=== PATIENT | male | born 1955 | race Caucasian/White ===

== ENCOUNTER → 2024-07-03 | Outpatient (CLI) | payer OTHER ==
[2024-07-03 15:56] LABS: BLOOD UREA NITROGEN 19 MG/DL (9-23); GLOMERULAR FILTRATION RATE > 60.0 (>42)
== END ==
LOC: M PLALAB 13:29
PROVIDERS: ATTEND Internal Medicine Hematology & Oncology
DX: D69.6 Thrombocytopenia, unspecified (principal)

== ENCOUNTER → 2024-07-07 | Outpatient (CLI) | payer OTHER ==
[~2024-07-07] MED LIST: GASTROGRAFIN SOLUTION 30ML ONE; ISOVUE-370 76% 100ML VIAL ONE
== END ==
LOC: M PLAIMG 09:50
PROVIDERS: ATTEND Internal Medicine Hematology & Oncology
DX: R16.1 Splenomegaly, not elsewhere classified (principal)
CPT/HCPCS: 71260; 74177; Q9963; Q9967

== ENCOUNTER → 2024-07-31 | Outpatient (CLI) | payer OTHER ==
[~2024-07-31] MED LIST changes: +ACETAMINOPHEN 325 MG TAB PO PRN; -GASTROGRAFIN SOLUTION 30ML ONE; -ISOVUE-370 76% 100ML VIAL ONE; +NORCO, ANEXSIA 5/325MG TABLET (HYDROcodone/ACETAMINOPHEN) PO PRN; +NS (Normal Saline) 0.9% 1,000 ML IV SCH
[2024-07-31 11:30] VITALS: TEMP 99.5
[2024-07-31 12:00] LABS: HEMATOCRIT 42.7 % (42.0-52.0); HEMOGLOBIN 13.7 g/dl (13.5-17.5); MEAN CORPUSCULAR HEMOGLOBIN 26.8 pg (27.0-33.0); MEAN CORPUSCULAR HGB CONC 32.1 g/dl (32.0-36.5); MEAN CORPUSCULAR VOLUME 83.4 fl (80.0-96.0); PLATELET COUNT, AUTOMATED 138 10^3/uL (150-450); RED BLOOD COUNT 5.12 10^6/uL (4.30-6.10); WHITE BLOOD COUNT 9.6 10^3/uL (4.0-10.0)
[2024-07-31 12:18] LABS: INR 1.06; PROTHROMBIN TIME 14.2 SECONDS (12.5-14.5)
[2024-07-31] MEDS: LIDOCAINE 1% MDV 20ML VIAL SC ONE (13:43)
[2024-07-31] MEDS: MIDAZOLAM INJ 2MG/2ML VIAL IV PRN (13:43)
[2024-07-31] MEDS: fentaNYL 100 MCG/2 ML INJECTION IV PRN (13:43)
[2024-07-31 16:15] VITALS: BP 155/70; O2SAT 94
== END ==
LOC: M IRPRO 11:13
PROVIDERS: ATTEND Internal Medicine Hematology & Oncology
DX: R91.8 Other nonspecific abnormal finding of lung field (principal); D69.6 Thrombocytopenia, unspecified; J95.811 Postprocedural pneumothorax
CPT/HCPCS: 32408; 84520; 85027; 85610; 88305; 99152; 99153; J2250; J3010

== ENCOUNTER → 2024-10-05 | Outpatient (CLI) | payer OTHER ==
[~2024-10-05] MED LIST changes: -ACETAMINOPHEN 325 MG TAB PO PRN; +ISOVUE-370 76% 100ML VIAL As Ordered ONE; -NORCO, ANEXSIA 5/325MG TABLET (HYDROcodone/ACETAMINOPHEN) PO PRN; -NS (Normal Saline) 0.9% 1,000 ML IV SCH
== END ==
LOC: M RAD 10:14
PROVIDERS: ATTEND Internal Medicine Hematology & Oncology
DX: R91.1 Solitary pulmonary nodule (principal); I89.0 Lymphedema, not elsewhere classified
CPT/HCPCS: 71260; Q9967

== ENCOUNTER → 2024-12-18 | Outpatient (CLI) | payer OTHER ==
[~2024-12-18] MED LIST changes: +ISOVUE-370 76% 100 ML VIAL As Ordered ONE; -ISOVUE-370 76% 100ML VIAL As Ordered ONE
== END ==
LOC: M RAD 14:35
PROVIDERS: ATTEND Nurse Practitioner
DX: I73.9 Peripheral vascular disease, unspecified (principal); R91.1 Solitary pulmonary nodule
CPT/HCPCS: 75635; 82565; Q9967